=== PATIENT | female | born 1975 | race Hispanic/Latino ===

== ENCOUNTER 2020-11-08 05:48 | Observation (INO) | payer OTHER ==
[2020-11-07 12:04] LABS: BASOPHILS % (AUTO) 0.6 % (0.0-5.0); EOSINOPHILS % (AUTO) 2.8 % (0.0-8.0); HEMATOCRIT 32.9 % (36-48); LYMPHOCYTES % (AUTO) 25.6 % (21.0-51.0); MEAN CORPUSCULAR HGB CONC 31.6 g/dL (32.0-36.0); MEAN CORPUSCULAR VOLUME 88.4 fL (79-99); MONOCYTES % (AUTO) 6.2 % (3.0-13.0); NEUTROPHILS % (AUTO) 64.7 % (40.0-77.0); PLATELET COUNT (AUTO) 292 K/uL (130-400); RED BLOOD CELL COUNT(AUTO) 3.72 MIL/uL (4.00-5.50); RED CELL DISTRIBUTION WIDTH 14.5 % (11.0-15.5); WHITE BLOOD COUNT (AUTO) 7.3 K/uL (4.8-10.8)
[2020-11-07 13:48] VITALS: BP 128/61
[2020-11-08] VITALS (27 sets, daily range): BP systolic 106–146; BP diastolic 52–93
[~2020-11-08] VITALS: Ht 154.9 cm; Wt 94.6 kg
[2020-11-08] MEDS ORDERED: LACTATED RINGERS 1000ML 1,000 ML IV ONE (07:35)
[2020-11-08] MEDS: CEFAZOLIN SODIUM 1 GM VIAL ONE ×2 (07:42→09:00)
[2020-11-08] MEDS ORDERED: PROPOFOL 10 MG/ML 20ML VIAL IV ONE ×2 (08:10→11:24)
[2020-11-08] MEDS ORDERED: LIDOCAINE PF 100MG/5ML (2%) SYRINGE 5ML ONE (08:10)
[2020-11-08] MEDS ORDERED: ONDANSETRON 4MG INJ ONE (08:10)
[2020-11-08] MEDS ORDERED: FENTANYL CITRATE PF 50 MCG/1 ML 5ML AMP IV ONE (08:11)
[2020-11-08] MEDS ORDERED: ROCURONIUM 10MG/1ML SYR 10 MG/ML ML ONE ×2 (08:11→09:53)
[2020-11-08] MEDS ORDERED: MIDAZOLAM HCL 1 MG/ML 2ML VIAL ONE (08:11)
[2020-11-08] MEDS ORDERED: ADAL40SY SQ (08:20)
[2020-11-08] MEDS ORDERED: MAGNESIUM SULFATE 1 GM/2 ML VIAL ONE (08:46)
[2020-11-08] MEDS ORDERED: KETAMINE 50MG/ML SYRINGE 50 MG/ML DISP.SYRIN IV ONE (08:46)
[2020-11-08] MEDS ORDERED: DEXAMETHASONE SOD PHOSPHATE 10MG/ML 1ML VIAL ONE (09:09)
[2020-11-08] MEDS ORDERED: KETOROLAC 30MG VIAL (30MG/ML) ONE (10:34)
[2020-11-08] MEDS ORDERED: FENTANYL CITRATE PF 50 MCG/1 ML 2ML VIAL ONE ×2 (10:42→11:27)
[2020-11-08] MEDS ORDERED: MEPERIDINE-PF 25 MG/ML SYG ONE ×2 (11:11→12:40)
[2020-11-08] MEDS ORDERED: GLYCOPYRROLATE 1 MG/5 ML SYRINGE ONE (11:12)
[2020-11-08] MEDS ORDERED: NEOSTIGMINE 5MG/5ML SYR IV ONE (11:12)
[2020-11-08] MEDS ORDERED: SUCCINYLCHOLINE CHLORIDE 20 MG/ML 10 ML VIAL ONE (12:01)
[2020-11-08] MEDS ORDERED: BISACODYL 10 MG SUPP.RECT RC PRN (19:30)
[2020-11-08] MEDS ORDERED: ACETAMINOPHEN WITH CODEINE 1 TAB TAB PO PRN (19:30)
[2020-11-08] MEDS ORDERED: PROMETHAZINE HCL 25 MG/ML 1ML AMPULE IM PRN (19:30)
[2020-11-08] MEDS ORDERED: ONDANSETRON 4MG INJ IVP PRN (19:30)
[2020-11-08] MEDS: DOCUSATE SODIUM 100 MG CAP PO PRN (20:10)
[2020-11-08] MEDS: SIMETHICONE 80 MG TAB.CHEW PO PRN (20:10)
[2020-11-08] MEDS: PROMETHAZINE HCL 25 MG/ML 1ML AMPULE IM PRN (20:11)
[2020-11-08] MEDS: MEPERIDINE-PF 75 MG/ML SYG IM PRN (20:12)
[2020-11-08] MEDS: DEXTROSE 5 %-0.45 % NACL 1,000 ML IV SCH (20:53)
[2020-11-09] MEDS ORDERED: HYDROCODONE/ACETAMINOPHEN 5/325 MG TAB PO PRN (01:00)
[2020-11-09 03:33] VITALS: BP 122/60
[2020-11-09] MEDS: DEXTROSE 5 %-0.45 % NACL 1,000 ML IV SCH (03:37)
[2020-11-09] MEDS: PROMETHAZINE HCL 25 MG/ML 1ML AMPULE IM PRN (06:05)
[2020-11-09] MEDS: MEPERIDINE-PF 75 MG/ML SYG IM PRN (06:06)
[2020-11-09 06:54] LABS: MEAN CORPUSCULAR HEMOGLOBIN 27.8 pg (27.0-33.0); MEAN CORPUSCULAR HGB CONC 30.7 g/dL (32.0-36.0); MEAN CORPUSCULAR VOLUME 90.3 fL (79-99); PLATELET COUNT (AUTO) 278 K/uL (130-400); RED BLOOD CELL COUNT(AUTO) 2.99 MIL/uL (4.00-5.50); RED CELL DISTRIBUTION WIDTH 14.6 % (11.0-15.5); WHITE BLOOD COUNT (AUTO) 12.5 K/uL (4.8-10.8)
[2020-11-09 07:19] VITALS: BP 125/72
[2020-11-09] MEDS: FERROUS SULFATE 325 MG TABLET.DR PO SCH ×3 (09:17→21:26)
[2020-11-09] MEDS: DOCUSATE SODIUM 100 MG CAP PO PRN (09:17)
[2020-11-09] MEDS: IBUPROFEN 600 MG TABLET PO PRN ×2 (09:17→17:51)
[2020-11-09] MEDS: SIMETHICONE 80 MG TAB.CHEW PO PRN (09:17)
[2020-11-09] MEDS: NITROFURANTOIN MONOHYD/M-CRYST 100 MG CAPSULE PO SCH ×2 (09:17→21:26)
[2020-11-09 11:44] VITALS: BP 125/70
[2020-11-09 15:58] VITALS: BP 111/57
[2020-11-09 19:26] VITALS: BP 121/80
[2020-11-09 23:31] VITALS: BP 104/46
[2020-11-10] MEDS: IBUPROFEN 800 MG TAB PO PRN ×3 (03:02→14:53)
[2020-11-10 03:43] VITALS: BP 114/59
[2020-11-10 07:32] VITALS: BP 110/63
[2020-11-10] MEDS ORDERED: ACETAMINOPHEN WITH CODEINE 1 TAB TAB PO PRN (08:00)
[2020-11-10] MEDS ORDERED: DOCUSATE SODIUM 100 MG CAP PO PRN (08:00)
[2020-11-10] MEDS ORDERED: SIMETHICONE 80 MG TAB.CHEW PO PRN (08:00)
[2020-11-10] MEDS ORDERED: BISACODYL 10 MG SUPP.RECT RC PRN (08:00)
[2020-11-10] MEDS ORDERED: HYDROCODONE/ACETAMINOPHEN 5/325 MG TAB PO PRN (08:00)
[2020-11-10] MEDS: NITROFURANTOIN MONOHYD/M-CRYST 100 MG CAPSULE PO SCH (08:32)
[2020-11-10] MEDS: FERROUS SULFATE 325 MG TABLET.DR PO SCH ×2 (08:32→14:53)
[2020-11-10 11:18] VITALS: BP 110/61
[2020-11-10] MEDS ORDERED: FERR325T22 PO (12:40)
[2020-11-10] MEDS ORDERED: ACET1TAB25 PO (12:40)
[2020-11-10] MEDS ORDERED: MACR100 PO (12:40)
[2020-11-10 16:10] VITALS: BP 126/64
== END 2020-11-10 17:00 | disposition home or self-care (01) ==
LOC: DAH 05:48 → WSH 05:49 → DAH 05:49 → WSH 13:25
PROVIDERS: ADMIT Obstetrics & Gynecology; ATTEND Obstetrics & Gynecology
DX: N92.1 Excessive and frequent menstruation with irregular cycle (principal); Z20.822 Contact with and (suspected) exposure to COVID-19; N39.3 Stress incontinence (female) (male); N81.10 Cystocele, unspecified; D25.9 Leiomyoma of uterus, unspecified; K64.9 Unspecified hemorrhoids; K46.9 Unspecified abdominal hernia without obstruction or gangrene; N83.201 Unspecified ovarian cyst, right side; N83.202 Unspecified ovarian cyst, left side; Z98.51 Tubal ligation status; Z98.891 History of uterine scar from previous surgery; Z90.721 Acquired absence of ovaries, unilateral
CPT/HCPCS: 36415 ×2; 57240; 58552; 85025; 85027; 86850; 86900; 86901; 87635; 96360; 96361 ×2; 96372 ×2; A4215 ×2; A4221; A4222; A4223; A4335; A4344; A4351; A4510; A4600; A4606; A4649 ×3; A4663; A6260; C1769 ×2; C1771; C9803; G0378 ×59; J0330; J0690; J1100; J2001; J2175 ×4; J2250; J2405; J2550 ×2; J2704 ×2; J2710; J3010 ×3; J3475; J3490 ×2; J7030; J7120 ×2; J1885